=== PATIENT | female | born 1940 | race Caucasian/White ===

== ENCOUNTER 2018-09-22 10:27 | Emergency (ER) | payer MEDICARE ==
--- NOTE | 2018-09-22 10:33 | EDM.PDOC ---
ED HPI GENERAL MEDICAL PROBLEM - General Chief Complaint: Eye Problems Stated Complaint: RED EYE Time Seen by Provider: 09/22/18 10:28 Source of Information: Reports: Patient History Limitations: Reports: No Limitations - History of Present Illness INITIAL COMMENTS - FREE TEXT/NARRATIVE: HISTORY AND PHYSICAL: History of present illness: Patient is an 78-year-old female who presents to the emergency room with concerns of a red eye. She states she woke up this morning with a bloodshot eye and was concerned as she does not recall any injury, trauma or reason for the redness. She does state that she bruises very easily, although does not take any blood thinners including aspirin. She denies any visual changes. Denies any pain with intraocular movement. Review of systems: As per history of present illness and below otherwise all systems reviewed and negative. Past medical history: As per history of present illness and as reviewed below otherwise noncontributory. Surgical history: As per history of present illness and as reviewed below otherwise noncontributory. Social history: See social history for further information Family history: As per history of present illness and as reviewed below otherwise noncontributory. Physical exam: General: Well-developed and well-nourished 78-year-old female. Alert and oriented. Nontoxic appearing and in no acute distress. HEENT: Atraumatic, normocephalic, pupils equal and reactive bilaterally, left eye is negative for conjunctival pallor or scleral icterus, subconjunctival hemorrage of the right eye. No intraocular pain with movement. No visual changes. Her mucous membranes moist, TMs normal bilaterally, throat clear, neck supple, nontender, trachea midline. No drooling or trismus noted. No meningeal signs. No hot potato voice noted. Lungs: Clear to auscultation, breath sounds equal bilaterally, chest nontender. Heart: S1S2, regular rate and rhythm without overt murmur Abdomen: Soft, nondistended, nontender. Negative for costovertebral tenderness. Pelvis: Stable nontender. Genitourinary: Deferred. Rectal: Deferred. Skin: Intact, warm, dry. No lesions or rashes noted. Extremities: Atraumatic, moves all extremities per self with difficulty or deficits, negative for cords or calf pain. Neurovascular unremarkable. Neuro: Awake, alert, oriented. Cranial nerves II through XII unremarkable. Cerebellum unremarkable. Motor and sensory unremarkable throughout. Exam nonfocal. Notes: Visual Acuity was done and reviewed by me. Dr Eugene was consulted on this case. An expedited follow-up appointment for the patient, per patient request, was made for her. Supportive care measures were reviewed and discussed. Voices understanding and is agreeable to plan of care. Denies any further questions or concerns at this time. Diagnostics: None Therapeutics: Visual Acuity/Eye exam Prescription: None Impression: Subconjunctival Hemorrhage Plan: 1. You have a follow-up appointment with Dr. Eugene at [facility] on at 9am 2. Please remember that the redness of the eye can take up to 2 weeks to resolve. 3. Return to the ED as needed and as discussed. Definitive disposition and diagnosis as appropriate pending reevaluation and review of above. - Related Data Allergies Allergy/AdvReac Type Severity Reaction Status Date / Time No Known Allergies Allergy Verified 09/22/18 10:40 Home Meds: Home Meds . [No Known Home Meds] 09/22/18 [History] ED ROS GENERAL - Review of Systems Review Of Systems: ROS reveals no pertinent complaints other than HPI. ED EXAM GENERAL W FULL EYE - Physical Exam Exam: See Below (See dictation) Course - Vital Signs Last Recorded V/S: Last Vital Signs Temp 97.8 F 09/22/18 10:40 Pulse 106 H 09/22/18 10:40 Resp 18 09/22/18 10:40 BP 122/78 09/22/18 10:40 Pulse Ox 98 09/22/18 10:40 - Orders/Labs/Meds Orders: Active Orders 24 hr Category Date Time Status Communication Order [RC] STAT Care 09/22/18 10:29 Active Departure - Departure Time of Disposition: 10:56 Disposition: Home, W Home Health Agency 06 Clinical Impression: Subconjunctival hemorrhage of right eye - Discharge Information Forms: ED Department Discharge Additional Instructions: The following information is given to patients seen in the emergency department who are being discharged to home. This information is to outline your options for follow-up care. We provide all patients seen in our emergency department with a follow-up referral. The need for follow-up, as well as the timing and circumstances, are variable depending upon the specifics of your emergency department visit. If you don't have a primary care physician on staff, we will provide you with a referral. We always advise you to contact your personal physician following an emergency department visit to inform them of the circumstance of the visit and for follow-up with them and/or the need for any referrals to a consulting specialist. The emergency department will also refer you to a specialist when appropriate. This referral assures that you have the opportunity for follow-up care with a specialist. All of these measure are taken in an effort to provide you with optimal care, which includes your follow-up. Under all circumstances we always encourage you to contact your private physician who remains a resource for coordinating your care. When calling for follow-up care, please make the office aware that this follow-up is from your recent emergency room visit. If for any reason you are refused follow-up, please contact the [facility] Emergency Department at and asked to speak to the emergency department charge nurse. [facility] [address] [place] [id number] [place] [address] 1. You have a follow-up appointment with Dr. Eugene at [facility] on at 9am 2. Please remember that the redness of the eye can take up to 2 weeks to resolve. 3. Return to the ED as needed and as discussed. - My Orders Last 24 Hours: My Active Orders 09/22/18 10:29 Communication Order [RC] STAT - Assessment/Plan Last 24 Hours: My Active Orders 09/22/18 10:29 Communication Order [RC] STAT
== END 2018-09-22 11:11 | disposition home health service (06) ==
LOC: MW.ED 10:27
DX: H11.31 Conjunctival hemorrhage, right eye (principal)
CPT/HCPCS: 99282

== ENCOUNTER 2018-12-10 04:12 | Observation (INO) | payer MEDICARE ==
--- NOTE | 2018-12-10 04:39 | EDM.PDOC ---
<Lucien Bermeo - Last Filed: 12/10/18 06:49> ED HPI GENERAL MEDICAL PROBLEM - General Chief Complaint: Neurological Problem Stated Complaint: CONFUSION Time Seen by Provider: 12/10/18 04:38 Source of Information: Reports: Patient - History of Present Illness INITIAL COMMENTS - FREE TEXT/NARRATIVE: HISTORY AND PHYSICAL: History of present illness: []Kalrie presents via EMS after a police well check should called the police stating there are number of children in her basement after several calls to 1 the police went to check on her she is confused/delirious there are no children in her home she is not oriented to person place or time Review of systems: As per history of present illness and below otherwise all systems reviewed and negative. Past medical history: As per history of present illness and as reviewed below otherwise noncontributory. Surgical history: As per history of present illness and as reviewed below otherwise noncontributory. Social history: No reported history of drug or alcohol abuse. Family history: As per history of present illness and as reviewed below otherwise noncontributory. Physical exam: HEENT: Atraumatic, normocephalic, pupils reactive, negative for conjunctival pallor or scleral icterus, mucous membranes moist, throat clear, neck supple, nontender, trachea midline. Lungs: Clear to auscultation, breath sounds equal bilaterally, chest nontender. Heart: S1S2, regular, negative for clicks, rubs, or JVD. Abdomen: Soft, nondistended, nontender. Negative for masses or hepatosplenomegaly. Negative for costovertebral tenderness. Pelvis: Stable nontender. Genitourinary: Deferred. Rectal: Deferred. Extremities: Atraumatic, negative for cords or calf pain. Neurovascular unremarkable. Neuro: Awake, alert, Cranial nerves II through XII unremarkable. Cerebellum unremarkable. Motor and sensory unremarkable throughout. Exam nonfocal. Diagnostics: [CBC CMP UA troponin EKG Chest [address] ] Therapeutics: [ normal saline Patient signed out at shift change follow CMP and disposition ] Impression: delerium/confusion Chronic history of baseline ] Definitive disposition and diagnosis as appropriate pending reevaluation and review of above. back Pain Score (Numeric/FACES): 3 - Related Data Allergies Allergy/AdvReac Type Severity Reaction Status Date / Time No Known Allergies Allergy Verified 12/10/18 04:18 Home Meds: Home Meds . [No Known Home Meds] 09/22/18 [History] Past Medical History HEENT History: Reports: Impaired Vision, Other (See Below) Other HEENT History: wears glasses for reading Cardiovascular History: Reports: None Respiratory History: Reports: None Gastrointestinal History: Reports: None Genitourinary History: Reports: None Musculoskeletal History: Reports: None Neurological History: Reports: None Psychiatric History: Reports: None Endocrine/Metabolic History: Reports: None Hematologic History: Reports: None Immunologic History: Reports: None Oncologic (Cancer) History: Reports: None Dermatologic History: Reports: None - Infectious Disease History Infectious Disease History: Reports: Chicken Pox, Measles, Mumps - Past Surgical History Head Surgeries/Procedures: Reports: None HEENT Surgical History: Reports: None Female Surgical History: Reports: Hysterectomy Social & Family History - Family History Family Medical History: Noncontributory - Tobacco Use Smoking Status *Q: Never Smoker Second Hand Smoke Exposure: No - Caffeine Use Caffeine Use: Reports: Coffee - Recreational Drug Use Recreational Drug Use: No Course - Vital Signs Last Recorded V/S: Last Vital Signs Temp 36.0 C 12/10/18 05:41 Pulse 81 12/10/18 06:35 Resp 16 12/10/18 06:35 BP 138/78 12/10/18 06:35 Pulse Ox 95 12/10/18 06:35 - Orders/Labs/Meds Orders: Active Orders 24 hr Category Date Time Status Admission Status [Patient Status] [ADT] Stat ADT 12/10/18 08:31 Active EKG Documentation Completion [RC] AM Care 12/10/18 04:37 Active Notify Provider Consults [RC] ASDIRECTED Care 12/10/18 08:15 Active Consult to Physician [CONS] Stat Cons 12/10/18 08:14 Active Lumbar Spine 2 or 3V [CR] Stat Exams 12/10/18 07:55 Taken Thoracic Spine 2V [CR] Stat Exams 12/10/18 07:55 Taken Sodium Chloride 0.9% [Normal Saline] 1,000 ml Med 12/10/18 04:45 Active IV STAT Medication Orders Sodium Chloride (Normal Saline) 1,000 mls @ 125 mls/hr IV STAT JEROME Last Admin: 12/10/18 05:38 Dose: 125 mls/hr Labs: Laboratory Tests 0712/10/18 12/10/18 Range/Units 05:00 05:00 06:23 WBC 5.94 (4.0-11.0) K/uL RBC 4.53 (4.30-5.90) M/uL Hgb 12.8 (12.0-16.0) g/dL Hct 39.3 (36.0-46.0) % MCV 86.8 (80.0-98.0) fL MCH 28.3 (27.0-32.0) pg MCHC 32.6 (31.0-37.0) g/dL RDW Std Deviation 44.3 (28.0-62.0) fl RDW Coeff of Dung 14 (11.0-15.0) % Plt Count 242 (150-400) K/uL MPV 9.20 (7.40-12.00) fL Neut % (Auto) 79.0 (48.0-80.0) % Lymph % (Auto) 11.3 L (16.0-40.0) % [place] % (Auto) 7.9 (0.0-15.0) % Eos % (Auto) 1.3 (0.0-7.0) % Baso % (Auto) 0.5 (0.0-1.5) % Neut # (Auto) 4.7 (1.4-5.7) K/uL Lymph # (Auto) 0.7 (0.6-2.4) K/uL [place] # (Auto) 0.5 (0.0-0.8) K/uL Eos # (Auto) 0.1 (0.0-0.7) K/uL Baso # (Auto) 0.0 (0.0-0.1) K/uL Nucleated RBC % 0.0 /100WBC Nucleated RBCs # 0 K/uL Sodium (136-145) mmol/L Potassium (3.5-5.1) mmol/L Chloride (98-107) mmol/L Carbon Dioxide (21.0-32.0) mmol/L BUN (7.0-18.0) mg/dL Creatinine (0.6-1.0) mg/dL Est Cr Clr Drug Dosing Estimated GFR (MDRD) ml/min Glucose (74-106) mg/dL Calcium (8.5-10.1) mg/dL Total Bilirubin (0.2-1.0) mg/dL AST (15-37) IU/L ALT (14-63) IU/L Alkaline Phosphatase (46-116) U/L Troponin I (0.000-0.056) ng/mL Total Protein (6.4-8.2) g/dL Albumin (3.4-5.0) g/dL Globulin (2.6-4.0) g/dL Albumin/Globulin Ratio (0.9-1.6) Urine Color YELLOW Urine Appearance CLEAR Urine pH 5.5 (5.0-8.0) Ur Specific [place] 1.025 (1.001-1.035) Urine Protein NEGATIVE (NEGATIVE) mg/dL Urine Glucose (UA) NEGATIVE (NEGATIVE) mg/dL Urine Ketones TRACE H (NEGATIVE) mg/dL Urine Occult Blood TRACE-INTACT H (NEGATIVE) Urine Nitrite NEGATIVE (NEGATIVE) Urine Bilirubin NEGATIVE (NEGATIVE) Urine Urobilinogen 0.2 (<2.0) EU/dL Ur Leukocyte Esterase NEGATIVE (NEGATIVE) Urine RBC 0-2 (0-2/HPF) Urine WBC 0-2 (0-5/HPF) Ur Epithelial Cells FEW (NONE-FEW) Urine Bacteria RARE (NEGATIVE) Urine Mucus LIGHT (NONE-MOD) Urine Opiates Screen NEGATIVE (NEGATIVE) Ur Oxycodone Screen NEGATIVE (NEGATIVE) Urine Methadone Screen NEGATIVE (NEGATIVE) Ur Barbiturates Screen NEGATIVE (NEGATIVE) Ur Phencyclidine Scrn NEGATIVE (NEGATIVE) Ur Amphetamine Screen NEGATIVE (NEGATIVE) U Methamphetamines Scrn NEGATIVE (NEGATIVE) U Benzodiazepines Scrn NEGATIVE (NEGATIVE) U Cocaine Metab Screen NEGATIVE (NEGATIVE) U Marijuana (THC) Screen NEGATIVE (NEGATIVE) Ethyl Alcohol mg/dL 12/10/18 Range/Units 06:23 WBC (4.0-11.0) K/uL RBC (4.30-5.90) M/uL Hgb (12.0-16.0) g/dL Hct (36.0-46.0) % MCV (80.0-98.0) fL MCH (27.0-32.0) pg MCHC (31.0-37.0) g/dL RDW Std Deviation (28.0-62.0) fl RDW Coeff of Dung (11.0-15.0) % Plt Count (150-400) K/uL MPV (7.40-12.00) fL Neut % (Auto) (48.0-80.0) % Lymph % (Auto) (16.0-40.0) % [place] % (Auto) (0.0-15.0) % Eos % (Auto) (0.0-7.0) % Baso % (Auto) (0.0-1.5) % Neut # (Auto) (1.4-5.7) K/uL Lymph # (Auto) (0.6-2.4) K/uL [place] # (Auto) (0.0-0.8) K/uL Eos # (Auto) (0.0-0.7) K/uL Baso # (Auto) (0.0-0.1) K/uL Nucleated RBC % /100WBC Nucleated RBCs # K/uL Sodium 139 (136-145) mmol/L Potassium 3.6 (3.5-5.1) mmol/L Chloride 104 (98-107) mmol/L Carbon Dioxide 26.4 (21.0-32.0) mmol/L BUN 9 (7.0-18.0) mg/dL Creatinine 0.6 (0.6-1.0) mg/dL Est Cr Clr Drug Dosing TNP Estimated GFR (MDRD) > 60.0 ml/min Glucose 87 (74-106) mg/dL Calcium 8.7 (8.5-10.1) mg/dL Total Bilirubin 0.4 (0.2-1.0) mg/dL AST 18 (15-37) IU/L ALT 13 L (14-63) IU/L Alkaline Phosphatase 61 (46-116) U/L Troponin I < 0.050 (0.000-0.056) ng/mL Total Protein 7.0 (6.4-8.2) g/dL Albumin 3.5 (3.4-5.0) g/dL Globulin 3.5 (2.6-4.0) g/dL Albumin/Globulin Ratio 1.0 (0.9-1.6) Urine Color Urine Appearance Urine pH (5.0-8.0) Ur Specific [place] (1.001-1.035) Urine Protein (NEGATIVE) mg/dL Urine Glucose (UA) (NEGATIVE) mg/dL Urine Ketones (NEGATIVE) mg/dL Urine Occult Blood (NEGATIVE) Urine Nitrite (NEGATIVE) Urine Bilirubin (NEGATIVE) Urine Urobilinogen (<2.0) EU/dL Ur Leukocyte Esterase (NEGATIVE) Urine RBC (0-2/HPF) Urine WBC (0-5/HPF) Ur Epithelial Cells (NONE-FEW) Urine Bacteria (NEGATIVE) Urine Mucus (NONE-MOD) Urine Opiates Screen (NEGATIVE) Ur Oxycodone Screen (NEGATIVE) Urine Methadone Screen (NEGATIVE) Ur Barbiturates Screen (NEGATIVE) Ur Phencyclidine Scrn (NEGATIVE) Ur Amphetamine Screen (NEGATIVE) U Methamphetamines Scrn (NEGATIVE) U Benzodiazepines Scrn (NEGATIVE) U Cocaine Metab Screen (NEGATIVE) U Marijuana (THC) Screen (NEGATIVE) Ethyl Alcohol <3 mg/dL Meds: Medications Generic Name Dose Route Start Last Admin Trade Name Freq PRN Reason Stop Dose Admin Sodium Chloride 1,000 mls @ 125 mls/hr 12/10/18 04:45 12/10/18 05:38 Normal Saline IV 125 mls/hr STAT JEROME Administration Departure - Departure Disposition: Refer to Observation Clinical Impression: Confusion - Discharge Information Referrals: PCP,None [Primary Care Provider] - Forms: ED Department Discharge - My Orders Last 24 Hours: My Active Orders 12/10/18 08:14 Consult to Physician [CONS] Stat 12/10/18 08:15 Notify Provider Consults [RC] ASDIRECTED - Assessment/Plan Last 24 Hours: My Active Orders 12/10/18 08:14 Consult to Physician [CONS] Stat 12/10/18 08:15 Notify Provider Consults [RC] ASDIRECTED <Mckinley Vogt - Last Filed: 12/10/18 08:02> ED HPI GENERAL MEDICAL PROBLEM - History of Present Illness INITIAL COMMENTS - FREE TEXT/NARRATIVE: Inherited medical care from Dr. Darnell. I re-evaluated the patient the she is alert and oriented to person. Not time, place, situation. Does not recall why she is here. Apparently, per medical records she called police since she was seeing kids/people in her basement. Police arrived and did not find anyone. Lab works is unremarkable. CT head did not show any acute stroke, hemorrhage. She states she has friends in [place] but she is reluctant to provide their contact information. I contacted the next of keen on EMR (son) but phone number has been disconnected. I also called the home number but no answer. She seems to be delirious with some underlying dementia. In addition, states she has had several falls in the past few weeks. Complaining of her back hurting. I will order thoracic/lumbar xrays. Contacted Dr. Hubbard in regards to the case and he or Agueda will come to evaluate the patient in the ER. <Jolene Gonzalez - Last Filed: 12/10/18 08:48> ED HPI GENERAL MEDICAL PROBLEM - History of Present Illness INITIAL COMMENTS - FREE TEXT/NARRATIVE: Dr. Hubbard has come to the ED and evaluated the patient. He is aware that we added x-rays of the thoracic and lumbar spine due to the patient's history of frequent falls and some vague discomfort she has been having. After his evaluation he agrees with observation admission. Please note the patient has been ordered breakfast and is eating and doing basic activities here in the ED without difficulties. Impression: Confusion etiology unclear ED ROS GENERAL - Review of Systems Review Of Systems: ROS reveals no pertinent complaints other than HPI. ED EXAM, GENERAL - Physical Exam Exam: See Below (See dictation) Departure - Departure Time of Disposition: 08:47 Condition: Good
[2018-12-10] MEDS ORDERED: Sodium Chloride 0.9% 1,000 ML IV SCH (04:45)
--- NOTE | 2018-12-10 05:54 | CR ---
INDICATION: Altered mental status TECHNIQUE: Chest 1 view COMPARISON: None FINDINGS: Cardiovascular and mediastinum: Heart size and vasculature are normal in caliber and appearance. Lungs and pleural spaces: Lungs are hyperinflated but otherwise clear. No sign of infiltrate or mass. No sign of pleural effusion. No pneumothorax. Bones and soft tissues: No significant findings. IMPRESSION: No acute or significant findings. Dictated by Anurag Valderrama MD @ Dec 10 2018 5:52AM Signed by Dr. Anurag Valderrama @ Dec 10 2018 5:52AM
--- NOTE | 2018-12-10 05:54 | CT ---
INDICATION: Altered mental status TECHNIQUE: Head CT without contrast. COMPARISON: None FINDINGS: CSF spaces: Within normal limits for age. Brain parenchyma and extra-axial spaces: There are nonspecific low attenuation white matter changes consistent with chronic microvascular disease. No sign of mass, hemorrhage, or midline shift. Benign basal ganglia calcifications. Skull base and calvarium: The visualized paranasal sinuses and mastoid air cells demonstrate no acute or significant findings. The visualized orbits are grossly unremarkable. No skull fractures. IMPRESSION: No acute or significant findings. Please note that all CT scans at this facility use dose modulation, iterative reconstruction, and/or weight-based dosing when appropriate to reduce radiation dose to as low as reasonably achievable. Dictated by Anurag Valderrama MD @ Dec 10 2018 5:49AM Signed by Dr. Anurag Valderrama @ Dec 10 2018 5:52AM
[2018-12-10 06:56] LABS: CHLORIDE,CL 104 mmol/L (98-107); SODIUM,NA 139 mmol/L (136-145)
--- NOTE | 2018-12-10 08:49 | CR ---
INDICATION: Recent fall with back pain TECHNIQUE: Thoracic spine 2 view COMPARISON: None FINDINGS: Bones: Mild compression fracture of the T11 vertebral body is of indeterminate age. An acute fracture is possible. Minimal scoliosis. No other fractures or malalignment in the thoracic spine. Joints: Disc spaces and facets are unremarkable. Soft tissues: Unremarkable. Dictated by Anurag Valderrama MD @ Dec 10 2018 8:42AM Signed by Dr. Anurag Valderrama @ Dec 10 2018 8:47AM
--- NOTE | 2018-12-10 08:53 | CR ---
INDICATION: Recent fall with back pain TECHNIQUE: Lumbar spine 3 view COMPARISON: None FINDINGS: Bones: Relatively severe compression fracture of the L1 vertebral body is of indeterminate age. An acute fracture is possible. There is scoliosis. No other fracture or malalignment. Joints: Disc space narrowing is at L4-5 and L5-S1. Soft tissues: Unremarkable. Dictated by Anurag Valderrama MD @ Dec 10 2018 8:50AM Signed by Dr. Anurag Valderrama @ Dec 10 2018 8:51AM
[2018-12-10] MEDS ORDERED: Acetaminophen 325 MG Tab PO PRN (09:17)
[2018-12-10] MEDS ORDERED: Ondansetron 4 MG/2 ML SDV IVPUSH PRN (09:17)
[2018-12-10] MEDS: Heparin Sodium 5,000 Units/ML Vial SUBCUT SCH ×2 (10:46→21:30)
--- NOTE | 2018-12-10 11:43 | PCM.HP ---
H&P History of Present Illness - General Date of Service: 12/10/18 Admit Problem/Dx: Admission Diagnosis/Problem Admission Diagnosis/Problem Altered mental status Source of Information: Patient History Limitations: Reports: Altered Mental Status - History of Present Illness Initial Comments - Free Text/Narative: This 78 year old female with unknown medical history presented to the ED with EMS after she called the police multiple times about children either in her basement or around her house banging around. The police went for a welfare check and no children were noted in the house. She was brought to the ED for evaluation because she seemed very confused. [place] reports not feeling well, she said she fell a couple times a few days ago and hurt her back. She denies fevers or chills. No headache or chest pain or palpitations. No shortness of breath. No other concerns. No urinary symptoms or diarrhea. She reports she drank a small amount of wine last night. Upon interview, she was alert and oriented with me, with nursing staff and on second rounds with Dr Hubbard she was disoriented x 3. She is unwilling to provider her son's number. His name is John Paul and reports he lives in [place] and calls her daily. The number we have on file is disconnected. In the ED labwork WNL. UA negative, Utox negative as well. VS have been stable. Xray or thoracic an lumbar spine WNL. Head CT negative as well. CXR negative. Admission recommended by ED to help with placement and monitor for delirium. back Pain Score (Numeric/FACES): 3 - Related Data Allergies/Adverse Reactions: Allergies Allergy/AdvReac Type Severity Reaction Status Date / Time No Known Allergies Allergy Verified 12/10/18 10:08 Home Medications: Home Meds . [No Known Home Meds] 09/22/18 [History] Past Medical History - Past Health History Medical/Surgical History: Denies Medical/Surgical History HEENT History: Reports: Impaired Vision, Other (See Below) Other HEENT History: wears glasses for reading Cardiovascular History: Reports: None. Denies: CAD, High Cholesterol, Hypertension Respiratory History: Reports: None Gastrointestinal History: Reports: None Genitourinary History: Reports: None Musculoskeletal History: Reports: None Neurological History: Reports: None Psychiatric History: Reports: Dementia (sundowns in the evening. Never officially diagnosed with Alzheimer's or dementia.) Endocrine/Metabolic History: Reports: None Hematologic History: Reports: None Immunologic History: Reports: None Oncologic (Cancer) History: Reports: None Dermatologic History: Reports: None - Infectious Disease History Infectious Disease History: Reports: Chicken Pox, Measles, Mumps - Past Surgical History Head Surgeries/Procedures: Reports: None HEENT Surgical History: Reports: None Female Surgical History: Reports: Hysterectomy Social & Family History - Family History Family Medical History: Noncontributory - Tobacco Use Smoking Status *Q: Former Smoker Used Tobacco, but Quit: Yes Month/Year Tobacco Last Used: unknown. Tobacco Use Comment: Smoked when she was younger Second Hand Smoke Exposure: No - Caffeine Use Caffeine Use: Reports: Coffee - Recreational Drug Use Recreational Drug Use: No - Living Situation & Occupation Living situation: Reports: with Family (son lives with her) Occupation: Retired H&P Review of Systems - Review of Systems: Review Of Systems: See Below General: Reports: No Symptoms. Denies: Fever, Chills, Malaise, Weakness HEENT: Reports: No Symptoms. Denies: Hearing Changes, Sinus Congestion, Vertigo Pulmonary: Reports: No Symptoms. Denies: Shortness of Breath Cardiovascular: Reports: No Symptoms. Denies: Chest Pain Gastrointestinal: Reports: No Symptoms. Denies: Abdominal Pain, Black Stool, Bloody Stool Musculoskeletal: Reports: Back Pain Skin: Reports: No Symptoms Psychiatric: Reports: No Symptoms Neurological: Reports: No Symptoms Hematologic/Lymphatic: Reports: No Symptoms Immunologic: Reports: No Symptoms Exam - Exam Exam: See Below - Vital Signs Vital Signs: Last Vital Signs Temp 97.5 F 12/10/18 09:30 Pulse 86 12/10/18 09:30 Resp 16 12/10/18 09:30 BP 139/62 12/10/18 09:30 Pulse Ox 98 12/10/18 10:01 Weight: 42.32 kg - Exam General: Alert, Cooperative. No: Oriented HEENT: Conjunctiva Clear, Posterior Pharynx Clear, Other (mul) - Patient Data Lab Results Last 24 hrs: Laboratory Results - last 24 hr 12/10/18 12/10/18 12/10/18 Range/Units 05:00 05:00 06:23 WBC 5.94 (4.0-11.0) K/uL RBC 4.53 (4.30-5.90) M/uL Hgb 12.8 (12.0-16.0) g/dL Hct 39.3 (36.0-46.0) % MCV 86.8 (80.0-98.0) fL MCH 28.3 (27.0-32.0) pg MCHC 32.6 (31.0-37.0) g/dL RDW Std Deviation 44.3 (28.0-62.0) fl RDW Coeff of Dung 14 (11.0-15.0) % Plt Count 242 (150-400) K/uL MPV 9.20 (7.40-12.00) fL Neut % (Auto) 79.0 (48.0-80.0) % Lymph % (Auto) 11.3 L (16.0-40.0) % [place] % (Auto) 7.9 (0.0-15.0) % Eos % (Auto) 1.3 (0.0-7.0) % Baso % (Auto) 0.5 (0.0-1.5) % Neut # (Auto) 4.7 (1.4-5.7) K/uL Lymph # (Auto) 0.7 (0.6-2.4) K/uL [place] # (Auto) 0.5 (0.0-0.8) K/uL Eos # (Auto) 0.1 (0.0-0.7) K/uL Baso # (Auto) 0.0 (0.0-0.1) K/uL Nucleated RBC % 0.0 /100WBC Nucleated RBCs # 0 K/uL Sodium (136-145) mmol/L Potassium (3.5-5.1) mmol/L Chloride (98-107) mmol/L Carbon Dioxide (21.0-32.0) mmol/L BUN (7.0-18.0) mg/dL Creatinine (0.6-1.0) mg/dL Est Cr Clr Drug Dosing Estimated GFR (MDRD) ml/min Glucose (74-106) mg/dL Calcium (8.5-10.1) mg/dL Total Bilirubin (0.2-1.0) mg/dL AST (15-37) IU/L ALT (14-63) IU/L Alkaline Phosphatase (46-116) U/L Troponin I (0.000-0.056) ng/mL Total Protein (6.4-8.2) g/dL Albumin (3.4-5.0) g/dL Globulin (2.6-4.0) g/dL Albumin/Globulin Ratio (0.9-1.6) Urine Color YELLOW Urine Appearance CLEAR Urine pH 5.5 (5.0-8.0) Ur Specific [place] 1.025 (1.001-1.035) Urine Protein NEGATIVE (NEGATIVE) mg/dL Urine Glucose (UA) NEGATIVE (NEGATIVE) mg/dL Urine Ketones TRACE H (NEGATIVE) mg/dL Urine Occult Blood TRACE-INTACT H (NEGATIVE) Urine Nitrite NEGATIVE (NEGATIVE) Urine Bilirubin NEGATIVE (NEGATIVE) Urine Urobilinogen 0.2 (<2.0) EU/dL Ur Leukocyte Esterase NEGATIVE (NEGATIVE) Urine RBC 0-2 (0-2/HPF) Urine WBC 0-2 (0-5/HPF) Ur Epithelial Cells FEW (NONE-FEW) Urine Bacteria RARE (NEGATIVE) Urine Mucus LIGHT (NONE-MOD) Urine Opiates Screen NEGATIVE (NEGATIVE) Ur Oxycodone Screen NEGATIVE (NEGATIVE) Urine Methadone Screen NEGATIVE (NEGATIVE) Ur Barbiturates Screen NEGATIVE (NEGATIVE) Ur Phencyclidine Scrn NEGATIVE (NEGATIVE) Ur Amphetamine Screen NEGATIVE (NEGATIVE) U Methamphetamines Scrn NEGATIVE (NEGATIVE) U Benzodiazepines Scrn NEGATIVE (NEGATIVE) U Cocaine Metab Screen NEGATIVE (NEGATIVE) U Marijuana (THC) Screen NEGATIVE (NEGATIVE) Ethyl Alcohol mg/dL 12/10/18 Range/Units 06:23 WBC (4.0-11.0) K/uL RBC (4.30-5.90) M/uL Hgb (12.0-16.0) g/dL Hct (36.0-46.0) % MCV (80.0-98.0) fL MCH (27.0-32.0) pg MCHC (31.0-37.0) g/dL RDW Std Deviation (28.0-62.0) fl RDW Coeff of Dung (11.0-15.0) % Plt Count (150-400) K/uL MPV (7.40-12.00) fL Neut % (Auto) (48.0-80.0) % Lymph % (Auto) (16.0-40.0) % [place] % (Auto) (0.0-15.0) % Eos % (Auto) (0.0-7.0) % Baso % (Auto) (0.0-1.5) % Neut # (Auto) (1.4-5.7) K/uL Lymph # (Auto) (0.6-2.4) K/uL [place] # (Auto) (0.0-0.8) K/uL Eos # (Auto) (0.0-0.7) K/uL Baso # (Auto) (0.0-0.1) K/uL Nucleated RBC % /100WBC Nucleated RBCs # K/uL Sodium 139 (136-145) mmol/L Potassium 3.6 (3.5-5.1) mmol/L Chloride 104 (98-107) mmol/L Carbon Dioxide 26.4 (21.0-32.0) mmol/L BUN 9 (7.0-18.0) mg/dL Creatinine 0.6 (0.6-1.0) mg/dL Est Cr Clr Drug Dosing TNP Estimated GFR (MDRD) > 60.0 ml/min Glucose 87 (74-106) mg/dL Calcium 8.7 (8.5-10.1) mg/dL Total Bilirubin 0.4 (0.2-1.0) mg/dL AST 18 (15-37) IU/L ALT 13 L (14-63) IU/L Alkaline Phosphatase 61 (46-116) U/L Troponin I < 0.050 (0.000-0.056) ng/mL Total Protein 7.0 (6.4-8.2) g/dL Albumin 3.5 (3.4-5.0) g/dL Globulin 3.5 (2.6-4.0) g/dL Albumin/Globulin Ratio 1.0 (0.9-1.6) Urine Color Urine Appearance Urine pH (5.0-8.0) Ur Specific [place] (1.001-1.035) Urine Protein (NEGATIVE) mg/dL Urine Glucose (UA) (NEGATIVE) mg/dL Urine Ketones (NEGATIVE) mg/dL Urine Occult Blood (NEGATIVE) Urine Nitrite (NEGATIVE) Urine Bilirubin (NEGATIVE) Urine Urobilinogen (<2.0) EU/dL Ur Leukocyte Esterase (NEGATIVE) Urine RBC (0-2/HPF) Urine WBC (0-5/HPF) Ur Epithelial Cells (NONE-FEW) Urine Bacteria (NEGATIVE) Urine Mucus (NONE-MOD) Urine Opiates Screen (NEGATIVE) Ur Oxycodone Screen (NEGATIVE) Urine Methadone Screen (NEGATIVE) Ur Barbiturates Screen (NEGATIVE) Ur Phencyclidine Scrn (NEGATIVE) Ur Amphetamine Screen (NEGATIVE) U Methamphetamines Scrn (NEGATIVE) U Benzodiazepines Scrn (NEGATIVE) U Cocaine Metab Screen (NEGATIVE) U Marijuana (THC) Screen (NEGATIVE) Ethyl Alcohol <3 mg/dL Result Diagrams: 12/10/18 06:23 12/10/18 06:23 - Problem List (1) Dementia SNOMED Code(s): 10495784 ICD Code: F03.90 - UNSPECIFIED DEMENTIA WITHOUT BEHAVIORAL DISTURBANCE Status: Acute Current Visit: Yes Qualifiers: Dementia type: Alzheimer's disease Problem List Initiated/Reviewed/Updated: Yes Orders Last 24hrs: Active Orders 24 hr Category Date Time Status Admission Status [Patient Status] [ADT] Stat ADT 12/10/18 08:31 Active Ambulate [RC] ASDIRECTED Care 12/10/18 09:17 Active EKG Documentation Completion [RC] AM Care 12/10/18 04:37 Active Intake and Output [RC] Q12H Care 12/10/18 09:17 Active May Shower [RC] ASDIRECTED Care 12/10/18 09:17 Active Notify Provider Consults [RC] ASDIRECTED Care 12/10/18 08:15 Active Oxygen Therapy [RC] PRN Care 12/10/18 09:17 Active Up With Assistance [RC] ASDIRECTED Care 12/10/18 09:17 Active Up to Chair [RC] ASDIRECTED Care 12/10/18 09:17 Active VTE/DVT Education [RC] Q12H Care 12/10/18 09:17 Active Vital Signs [RC] Q4H Care 12/10/18 09:17 Active Consult to Case Management/Pattern Hanger [CONS] Cons 12/10/18 09:24 Active Routine Consult to Physician [CONS] Stat Cons 12/10/18 08:14 Active Regular Diet [DIET] Diet 12/10/18 Breakfast Active BASIC METABOLIC PANEL,BMP [CHEM] AM Lab 12/11/18 05:11 Ordered CBC WITH AUTO DIFF [HEME] AM Lab 12/11/18 05:11 Ordered Acetaminophen [Tylenol] Med 12/10/18 09:17 Active 650 mg PO Q4H PRN Heparin Sodium Med 12/10/18 09:30 Active 5,000 units SUBCUT Q12H Ondansetron [Zofran] Med 12/10/18 09:17 Active 4 mg IVPUSH Q4H PRN Medication Orders Acetaminophen (Tylenol) 650 mg PO Q4H PRN PRN Reason: Pain (mild 1-3) Heparin Sodium (Porcine) (Heparin Sodium) 5,000 units SUBCUT Q12H JEROME Last Admin: 12/10/18 10:46 Dose: 5,000 units Ondansetron HCl (Zofran) 4 mg IVPUSH Q4H PRN PRN Reason: Nausea Assessment/Plan Comment:: This 78 year old female admitted with confusion 1. COnfusion: Social work and police were able to find son's phone number as patient would not give it to him. I spoke with John Paul this afternoon. Many other the behaviors we are seeing are not new. He reports she will not go to the doctor to be diagnosed with dementia or ALzheimers, as this runs heavily in her family. John Paul recently moved to live with his mother due to her worsening memory and hallucinations. She thinks the dolls in her house are children. He did recently put some in the basement. He is on vacation currently and a friend/ manufacturing management associate, Sai Paramjit was watching over his mother. She normally is safe to be at home and needs directing to find her bed room to sleep. Sai went to the house this morning to check on her and she was not there. Ultimately John Paul would like his mother in a nursing facility. He is safe placing her back in Sai's care until he arrives home on Thursday. I will send paperwork for resources in the community for [facility] and a [facility] application. I will also set her up with provider to have her evaluated for [facility]. He was greatful for this. We will monitor [place] bullock. She currently is pleasantly confused, with moments of clarity. She will be discharged home tomorrow with Sai.
[2018-12-11 06:49] LABS: CHLORIDE,CL 107 mmol/L (98-107); SODIUM,NA 141 mmol/L (136-145)
--- NOTE | 2018-12-11 08:21 | PCM.DCSUM1 ---
Discharge Summary - Discharge Data Discharge Date: 12/11/18 Discharge Disposition: Home, Self-Care 01 Condition: Stable - Patient Summary/Data Consults: Consultations 12/10/18 08:14 Consult to Physician [CONS] Stat 12/10/18 09:24 Consult to Case Management/Shell Molder [CONS] Routine Hospital Course: 78 yo female who was admitted for dementia. She had called the police reporting children in her house and was brought to the the ED. Her lab work was WNL. UA negative, Utox negative as well. VS have been stable. Xray or thoracic an lumbar spine WNL. Head CT negative as well. CXR negative. Admission recommended by ED to help with placement and monitor for delirium. We contacted her son her reports history of worsening memory problems. He has gone on vacation and left her in the care of a friend Sai. Social work was consulted and the plan is to discharge patient home under the care of Sai and the plan is for eventual correction placement. - Patient Instructions Diet: Usual Diet as Tolerated Activity: As Tolerated Notify Provider of: Fever, Increased Pain - Discharge Plan Home Medications: Home Meds . [No Known Home Meds] 09/22/18 [History] Patient Handouts: Confusion Referrals: Gael Bustos MD [Physician] - 12/22/18 9:30 am (Please arrive 30 minutes early to check in. Bring photo ID) - Discharge Summary/Plan Comment DC Time >30 min.: No - Patient Data Vitals - Most Recent: Last Vital Signs Temp 36.6 C 12/11/18 03:55 Pulse 66 12/11/18 03:55 Resp 19 12/11/18 03:55 BP 139/74 12/11/18 03:55 Pulse Ox 97 12/11/18 03:55 Weight - Most Recent: 42.32 kg I&O - Last 24 hours: Intake & Output 12/10/18 12/11/18 12/11/18 22:59 06:59 14:59 Intake Total 480 510 Balance 480 510 Lab Results - Last 24 hrs: Laboratory Results - last 24 hr 12/11/18 12/11/18 Range/Units 06:21 06:21 WBC 4.57 (4.0-11.0) K/uL RBC 4.32 (4.30-5.90) M/uL Hgb 12.0 (12.0-16.0) g/dL Hct 37.4 (36.0-46.0) % MCV 86.6 (80.0-98.0) fL MCH 27.8 (27.0-32.0) pg MCHC 32.1 (31.0-37.0) g/dL RDW Std Deviation 44.1 (28.0-62.0) fl RDW Coeff of Dung 14 (11.0-15.0) % Plt Count 224 (150-400) K/uL MPV 9.30 (7.40-12.00) fL Neut % (Auto) 57.1 (48.0-80.0) % Lymph % (Auto) 30.6 (16.0-40.0) % [place] % (Auto) 7.7 (0.0-15.0) % Eos % (Auto) 3.9 (0.0-7.0) % Baso % (Auto) 0.7 (0.0-1.5) % Neut # (Auto) 2.6 (1.4-5.7) K/uL Lymph # (Auto) 1.4 (0.6-2.4) K/uL [place] # (Auto) 0.4 (0.0-0.8) K/uL Eos # (Auto) 0.2 (0.0-0.7) K/uL Baso # (Auto) 0.0 (0.0-0.1) K/uL Nucleated RBC % 0.0 /100WBC Nucleated RBCs # 0 K/uL Sodium 141 (136-145) mmol/L Potassium 4.4 (3.5-5.1) mmol/L Chloride 107 (98-107) mmol/L Carbon Dioxide 26.9 (21.0-32.0) mmol/L BUN 12 (7.0-18.0) mg/dL Creatinine 0.6 (0.6-1.0) mg/dL Est Cr Clr Drug Dosing 49.96 mL/min Estimated GFR (MDRD) > 60.0 ml/min Glucose 87 (74-106) mg/dL Calcium 8.6 (8.5-10.1) mg/dL Med Orders - Current: Current Medications Acetaminophen (Tylenol) 650 mg PO Q4H PRN PRN Reason: Pain (mild 1-3) Last Admin: 12/10/18 21:30 Dose: 650 mg Heparin Sodium (Porcine) (Heparin Sodium) 5,000 units SUBCUT Q12H JEROME Last Admin: 12/10/18 21:30 Dose: 5,000 units Ondansetron HCl (Zofran) 4 mg IVPUSH Q4H PRN PRN Reason: Nausea Discontinued Medications Sodium Chloride (Normal Saline) 1,000 mls @ 125 mls/hr IV STAT JEROME Last Admin: 12/10/18 05:38 Dose: 125 mls/hr
[2018-12-11] MEDS: Heparin Sodium 5,000 Units/ML Vial SUBCUT SCH (08:31)
== END 2018-12-11 10:00 | disposition home or self-care (01) ==
LOC: MW.ED 04:12 → MW.MS 08:31
PROVIDERS: ADMIT Internal Medicine; ATTEND Internal Medicine
DX: G30.9 Alzheimer's disease, unspecified (principal); F02.80 Dementia in other diseases classified elsewhere, unspecified severity, without behavioral disturbance, psychotic disturbance, mood disturbance, and anxiety; Z87.891 Personal history of nicotine dependence
CPT/HCPCS: 36415; 70450; 71045; 72070; 72100; 80048; 80053; 80305; 81001; 84484; 85025; 93005; 96360; 96361; 99285; A9270; G0480; J1644; J7040